=== PATIENT | female | born 1940 | race Caucasian/White ===

== ENCOUNTER 2017-08-04 08:33 | Day surgery (SDC) | payer MEDICARE ==
[~2017-08-04] VITALS: Ht 152.4 cm; Wt 98.0 kg
[~2017-08-04 08:33] MED LIST: ALPRAZOLAM0.25 M1 PO; AMLODIPINE5 MG PO; ASPIRIN ADULT L81 M3 PO; B-121000 MC1 PO; CALCIUM 600 +600 MG PO; CELEXA20 M1 PO; COZAAR100 MG PO; GLUCOSAMINE S1000 MG PO; KEFLEX500 M1 PO; LASIX 20 MG TAB20 MG PO; METFORMIN500 M2 PO; PRILOSEC40 MG PO; TENORMIN PO; THERACRAN650 MG PO; TYLENOL 8 HOUR650 MG PO; VITAMIN B-125000 MC2 PO
[2017-08-04 11:05] VITALS: BP 138/58
== END 2017-08-04 11:20 | disposition home or self-care (01) ==
LOC: ENDO 08:33 → ORM 08:45 → ENDO 10:05
PROVIDERS: ATTEND Surgery
PROC: 0DB78ZX Excision of Stomach, Pylorus, Via Natural or Artificial Opening Endoscopic, Diagnostic (ICD-10-PCS; principal; 2017-08-04)
DX: K21.0 Gastro-esophageal reflux disease with esophagitis (principal); K29.40 Chronic atrophic gastritis without bleeding; K29.80 Duodenitis without bleeding; K57.10 Diverticulosis of small intestine without perforation or abscess without bleeding; E11.9 Type 2 diabetes mellitus without complications; I10 Essential (primary) hypertension

== ENCOUNTER 2020-01-30 06:53 | Day surgery (SDC) | payer MEDICARE ==
[~2020-01-30] VITALS: Ht 152.4 cm; Wt 97.1 kg
[~2020-01-30 06:53] MED LIST changes: +ALLERGY RE50 MCG/ACT; +ATENOLOL25 MG PO; +CYANOCOBAL1000 MCG/M IM; +D32000 UNI1 PO; +FISH OIL1000 MG PO; +FLONASE AL50 MCG/ACT; +LORATADINE10 M1 PO; +PEPCID20 MG PO; -THERACRAN650 MG PO; +TRAMADOL HCL50 MG PO; +ZOLPIDEM5 M1 PO; +[UNRECOGNIZED DRUG - OTHER] PO; +[UNRECOGNIZED DRUG - OTHER] PO
[2020-01-30] MEDS ORDERED: [UNRECOGNIZED DRUG - OTHER] PO (08:52)
[2020-01-30 09:09] VITALS: BP 115/62
== END 2020-01-30 09:33 | disposition home or self-care (01) ==
LOC: ENDO 06:53 → ORM 08:15 → ENDO 08:15
PROVIDERS: ATTEND Surgery
PROC: 0W3P8ZZ Control Bleeding in Gastrointestinal Tract, Via Natural or Artificial Opening Endoscopic (ICD-10-PCS; principal; 2020-01-30)
PROC: 0DB78ZX Excision of Stomach, Pylorus, Via Natural or Artificial Opening Endoscopic, Diagnostic (ICD-10-PCS; 2020-01-30)
DX: K55.21 Angiodysplasia of colon with hemorrhage (principal); K57.50 Diverticulosis of both small and large intestine without perforation or abscess without bleeding; K64.8 Other hemorrhoids; K64.4 Residual hemorrhoidal skin tags; K25.9 Gastric ulcer, unspecified as acute or chronic, without hemorrhage or perforation; K29.50 Unspecified chronic gastritis without bleeding; K44.9 Diaphragmatic hernia without obstruction or gangrene; I10 Essential (primary) hypertension; E11.9 Type 2 diabetes mellitus without complications; Z86.010 Personal history of colon polyps; Z11.59 Encounter for screening for other viral diseases